=== PATIENT | female | born 2000 | race Caucasian/White ===

== ENCOUNTER 2021-10-23 21:12 | Observation (INO) | payer OTHER, MEDICAID, SELFPAY ==
[2021-10-23] VITALS (13 sets, daily range): BP systolic 102–109; BP diastolic 58–72; PULSE 73–97; O2SAT 99–100; BMI 20.1
[2021-10-23 22:09] LABS: Add Urine Microscopic? YES; Appearance Urine Cloudy (Clear); Bacteria Urine Trace /hpf; Bilirubin Urine Negative (Negative); Blood Urine Negative (Negative); Color Urine Yellow (Yellow); Glucose Urine UA Negative (Negative); Ketones Urine Negative (Negative); Leukocyte Esterase Ur Trace LEU/UL (NEGATIVE); Mucus Urine Rare /lpf; Nitrate Urine Negative (Negative); Protein Urine Negative (Negative); Squamous Epithelial Cell Urine Moderate /hpf (Few); Transitional Epi Cells Urine Rare /hpf (None Seen); Urobilinogen Urine Negative mg/dL (<2.0); WBC Urine 0-3 /hpf (0-3)
[2021-10-23 22:46] LABS: Amphetamine Screen Urine Negative (Negative); Barbiturate Screen Urine Negative (Negative); Benzodiazepines Screen Urine Negative (Negative); Cannabinoid Screen Urine Positive (Negative); Cocaine Screen Urine Negative (Negative); Methadone Screen Urine Negative (Negative); Opiate Screen Urine Negative (Negative); Phencyclidine Screen Urine Negative (Negative)
--- NOTE | 2021-10-26 06:59 | PM.OBTRLD ---
OB - Triage/Final Diagnosis Visit Information Comments/Additional reasons for admission: I have assessed the risk for this patient, Queenie Zamarripa, and determined that she would benefit from observation care. Evaluation Laboratory results: Laboratory Tests 10/23/21 10/23/21 21:54 21:54 Urine Color Yellow Urine Appearance Cloudy H Urine pH 6.0 Ur Specific [place] 1.010 Urine Protein Negative Urine Glucose (UA) Negative Urine Ketones Negative Ur Blood (Man) Negative Urine Nitrate Negative Urine Bilirubin Negative Urine Urobilinogen Negative Ur Leukocyte Esterase Trace H Urine RBC 3-5 H Urine WBC 0-3 Ur Squamous Epith Cells Moderate H Ur Transition Epith Cell Rare Urine Bacteria Trace Urine Mucus Rare Urine Opiates Screen Negative Urine Methadone Screen Negative Ur Barbiturates Screen Negative Ur Phencyclidine Scrn Negative Ur Amphetamine Screen Negative U Benzodiazepines Scrn Negative Urine Cocaine Screen Negative U Cannabinoids Screen Positive A Final Diagnosis (1) Abdominal pain affecting : Code(s): O26.899 - Other specified related conditions, unspecified trimester; R10.9 - Unspecified abdominal pain Status: Acute
== END 2021-10-23 22:57 | disposition home or self-care (01) ==
PROVIDERS: Admitting Provider Obstetrics & Gynecology; Visit Provider Obstetrics & Gynecology
DX: O26.892 Other specified pregnancy related conditions, second trimester (principal); R10.9 Unspecified abdominal pain; Z3A.24 24 weeks gestation of pregnancy
CPT/HCPCS: 80307; 81001; 87086; 87088; G0378; G0379

== ENCOUNTER 2021-11-03 08:44 | Outpatient (CLI) | payer OTHER, MEDICAID, SELFPAY ==
--- NOTE | ~2021-11-03 | US_ITS ---
US OB /maternal detail DATE: 11/03/2021 09:51 INDICATION: Supervision of normal . anatomy screen. TECHNIQUE: Real-time imaging, Doppler analysis COMPARISON: None available FINDINGS: Live single intrauterine gestation, fetus in longitudinal lie, vertex presentation, with fe heraclio heart rate of 144 bpm. Anterior placenta, lower margin 10.7 cm above the internal os. Cervix length measurement 2.9 cm. Amniotic fluid index measures 10.4 cm, at lower limits of normal. Densities 5th percentile: 9.7 cm; 9 5th percentile: 22.1 cm) cerebral ventricles, cerebellum, cisterna magna, nuchal fold, spine appear normal. nose a nd lips appear unremarkable. Four-chamber heart. Right ventricular outflow tracts appear normal. Diaphragm intact. Fluid is demonstrated in the stomach and urinary bladder. kidneys appear unremarkable without hydr onephrosis. male external genitalia. Three-vessel umbilical cord with normal insertion at abdominal wall. Biparietal diameter 6.39 cm; 25 weeks 6 days Head circumference 23.78 cm; 25 weeks 6 days Abdominal circumference 21.66 cm; 26 weeks 1 day Femur length 4.74 cm; 25 weeks 6 days Estimated gestational age by Hadlock formula is 26 weeks +/- 1 weeks 6 days with DIANE of 02/09/2022, co mpared to 02/07/2022 by LMP. Femur length/BPD: 74.18, within normal range of 71.0-87.0 Head circumference/abdominal circumference 1.10, within normal range of 1.04-1.22 Femur length/abdominal circumference 21.87, within normal range of 20.0-24.0 Femur length/head circumference 19.93, within normal range of 18.60-20.40 IMPRESSION: Estimated gestational age is 26 weeks +/- 1 weeks 6 days; DIANE: 02/09/2022 Estimated weight is 876.8 +/- 131.5 g Estimated weight-GP: 50.6% Reviewed, dictated and finalized at [facility] Reviewed, dictated and finalized at [facility]. IMPRESSION: Estimated gestational age is 26 weeks +/- 1 weeks 6 days; DIANE: 02/09 Estimated weight is 876.8 +/- 131.5 g Estimated weight-GP: 50.6%
== END 2021-11-03 08:45 | disposition home or self-care (01) ==
LOC: ANHIMG 08:45
PROVIDERS: Visit Provider Obstetrics & Gynecology
DX: Z34.92 Encounter for supervision of normal pregnancy, unspecified, second trimester (principal); Z3A.26 26 weeks gestation of pregnancy
CPT/HCPCS: 76805

== ENCOUNTER 2021-11-15 08:42 | Outpatient (CLI) | payer OTHER, MEDICAID, SELFPAY ==
[2021-11-15 09:30] LABS: Creatinine Urine 61.9 mg/dL; Total Protein Urine Random 10 mg/dL
[2021-11-15 09:59] LABS: Basophils Percent Auto 0.3 % (0.2-1.2); Eosinophils Absolute Auto 0.1 K/mm3 (0-0.3); Eosinophils Percent Auto 1.3 % (0-4.4); Hemoglobin 9.8 g/dL (12.0-15.0); Immature Granulocyte Absolute 0.07 K/mm3 (0.00-0.031); Immature Granulocyte Percent A 0.7 % (0-0.5); Lymphocytes Absolute Auto 1.53 K/mm3 (0.9-3.2); Lymphocytes Percent Auto 14.2 % (18.3-44.2); Mean Corpuscular HGB Conc 32.7 g/dl (32-36); Mean Corpuscular Hemoglobin 32.7 pg (26-34); Monocytes Absolute Auto 0.6 K/mm3 (0.1-0.6); Monocytes Percent Auto 5.4 % (2.6-8.5); Neutrophils Absolute Auto 8.4 K/mm3 (1.3-6.7); Neutrophils Percent Auto 78.1 % (45.5-73.1); Platelet Count Result 293 k/mm3 (150-375); Red Cell Distribution Width 13.4 % (11.5-14.5); White Blood Count 10.8 K/mm3 (4.5-10.0)
[2021-11-15 10:26] LABS: Alanine Aminotransferase 9 U/L (4-35); Albumin Level 3.7 g/dL (3.5-5.1); Alkaline Phosphatase 61 U/L (38-126); Anion Gap 5 mmol/L (8-16); Aspartate Amino Transferase 17 U/L (14-36); Bilirubin,Total 0.1 mg/dL (0.2-1.3); Blood Urea Nitrogen 3 mg/dL (7-17); Calcium 8.3 mg/dL (8.4-10.2); Carbon Dioxide 26 mmol/L (22-30); Chloride 105 mmol/L (98-107); Estimated Glomerular Filt Rate > 60; Glucose 153 mg/dL (65-110); Glucose 1 Hour PP 50gm Dose 152 mg/dL; Lactate Dehydrogenase 323 U/L (313-618); Potassium 3.4 mmol/L (3.4-5.0); Sodium 136 mmol/L (137-145); Uric Acid 3.3 mg/dL (2.5-7.5)
[2021-11-15 10:51] LABS: HIV 1/2 Ab P24 Ag Result Negative (Negative)
== END 2021-11-15 08:43 | disposition home or self-care (01) ==
LOC: ANHLAB 08:44
PROVIDERS: Visit Provider Obstetrics & Gynecology
DX: Z34.90 Encounter for supervision of normal pregnancy, unspecified, unspecified trimester (principal); Z87.59 Personal history of other complications of pregnancy, childbirth and the puerperium; Z3A.00 Weeks of gestation of pregnancy not specified
CPT/HCPCS: 36415; 80053; 81050; 82570; 82947; 83615; 84156; 84550; 85025; 86703; G0432

== ENCOUNTER 2021-11-19 08:17 | Outpatient (CLI) | payer OTHER, MEDICAID, SELFPAY ==
[2021-11-19 08:48] LABS: Glucose Fasting Gestational 76 mg/dL (>/=95)
[2021-11-19 10:30] LABS: Glucose 1 Hour Gest 150 mg/dL (>/=180)
[2021-11-19 11:22] LABS: Glucose 2 Hour Gest 126 mg/dL (>/= 155)
[2021-11-19 12:05] LABS: Glucose 3 Hour Gest 104 mg/dL (>/=140)
== END 2021-11-19 08:18 | disposition home or self-care (01) ==
PROVIDERS: Visit Provider Obstetrics & Gynecology
DX: R73.09 Other abnormal glucose (principal)
CPT/HCPCS: 36415; 82951; 82952

== ENCOUNTER 2021-12-14 15:25 | Outpatient (CLI) | payer OTHER, MEDICAID, SELFPAY ==
[2021-12-16 18:39] LABS: CMV IgG Antibody <0.60 U/mL (<0.60)
== END 2021-12-14 15:26 | disposition home or self-care (01) ==
PROVIDERS: Visit Provider Obstetrics & Gynecology
DX: Z34.90 Encounter for supervision of normal pregnancy, unspecified, unspecified trimester (principal); Z3A.00 Weeks of gestation of pregnancy not specified
CPT/HCPCS: 36415; 86644; 86747; 86787; 87086

== ENCOUNTER 2021-12-22 10:32 | Outpatient (CLI) | payer OTHER, MEDICAID, SELFPAY ==
[2021-12-22 19:40] LABS: Hematocrit 31.3 % (37.0-47.0); Hemoglobin 10.1 g/dL (12.0-15.0); Mean Corpuscular HGB Conc 32.3 g/dl (32-36); Mean Corpuscular Hemoglobin 33.6 pg (26-34); Mean Platelet Volume 9.8 fl (7.4-10.4); Platelet Count Result 368 k/mm3 (150-375); Red Blood Count 3.01 M/mm3 (4.2-5.4); White Blood Count 13.5 K/mm3 (4.5-10.0)
== END 2021-12-22 10:33 | disposition home or self-care (01) ==
LOC: ANHBWCLAB 10:35
PROVIDERS: PCP Family Medicine; Visit Provider Family Medicine
DX: Z00.00 Encounter for general adult medical examination without abnormal findings (principal); Z87.59 Personal history of other complications of pregnancy, childbirth and the puerperium; R73.09 Other abnormal glucose; R10.9 Unspecified abdominal pain; O26.899 Other specified pregnancy related conditions, unspecified trimester; Z3A.00 Weeks of gestation of pregnancy not specified
CPT/HCPCS: 36415; 85027

== ENCOUNTER 2022-01-16 19:52 | Observation (INO) | payer OTHER, MEDICAID, SELFPAY ==
[2022-01-16] VITALS (14 sets, daily range): BP systolic 105–112; BP diastolic 64–74; PULSE 74–107; TEMP 36.3; O2SAT 99–100
[2022-01-16 20:28] LABS: Appearance Urine Clear (Clear); Bilirubin Urine Negative (Negative); Blood Urine Negative (Negative); Color Urine Yellow (Yellow); Glucose Urine UA Negative (Negative); Ketones Urine Negative (Negative); Leukocyte Esterase Ur 1+ LEU/UL (Negative); Nitrate Urine Negative (Negative); Protein Urine Negative (Negative); Specific Grav Ur 1.015 (1.001-1.035); Urobilinogen Urine 0.2 mg/dL (<2.0)
[2022-01-16 20:44] LABS: Bacteria Urine 2+ /hpf; Squamous Epithelial Cell Urine Many /hpf (Few)
[2022-01-16 20:46] LABS: Add Urine Microscopic? YES
[2022-01-16] MEDS: DEXTROSE 5%/LACTATED RINGERS 1,000 ML 999 ML IV CONT (20:55)
[2022-01-16] MEDS: ONDANSETRON INJ 4 MG/2 ML VIAL IV PUSH (20:58)
--- NOTE | 2022-01-26 10:45 | PM.OBTRLD ---
OB - Triage/Final Diagnosis Visit Information Reason for evaluation: threatened labor Comments/Additional reasons for admission: I have assessed the risk for this patient, Queenie Zamarripa, and determined that she would benefit from observation care. Evaluation Laboratory results: Laboratory Tests 01/16/22 20:18 Urine Color Yellow Urine Appearance Clear Urine pH 7.0 Ur Specific [place] 1.015 Urine Protein Negative Urine Glucose (UA) Negative Urine Ketones Negative Ur Blood (Man) Negative Urine Nitrate Negative Urine Bilirubin Negative Urine Urobilinogen 0.2 Leukocyte Esterase Rfl 1+ H Urine RBC 3-5 H Urine WBC 4-6 H Ur Squamous Epith Cells Many H Urine Bacteria 2+ H
== END 2022-01-16 21:49 | disposition home or self-care (01) ==
PROVIDERS: Admitting Provider Obstetrics & Gynecology; PCP Family Medicine; Visit Provider Obstetrics & Gynecology
DX: O47.9 False labor, unspecified (principal); Z3A.00 Weeks of gestation of pregnancy not specified; R11.2 Nausea with vomiting, unspecified
CPT/HCPCS: 81001; 96374; G0378; G0379; J2405; J7121

== ENCOUNTER 2022-01-25 08:50 | Emergency (ER) | payer OTHER, MEDICAID, SELFPAY ==
[2022-01-25 08:56] VITALS: BP 104/65; PULSE 94; RESP 16; TEMP 36.3; O2SAT 100
--- NOTE | 2022-01-25 09:45 | ED.URI ---
HPI - URI/Sore Throat General Chief Complaint: Upper Respiratory Infection Stated Complaint: sore throat cough achey Time Seen by Provider: 01/25/22 09:47 Source: patient and RN notes reviewed Mode of arrival: ambulatory Limitations: no limitations History of Present Illness HPI Narrative: 21-year-old female who is 39 weeks presents with concern for sore throat and body aches for 3 days. She reports mild cough and congestion. Reports she is scheduled to be induced on February 07. She denies any shortness of breath, fever, nausea, vomiting, diarrhea. MD elicited complaint: cough and sore throat Related Data Home Medications Medication Instructions Recorded Confirmed PNV 153-FA 400 mcg-om3 35 mg-dha 1 tablet PO DAILY 10/27/21 01/25/22 25 mg-epa 5 mg-fish oil chew tablet ( Gummies) aspirin 81 mg chewable tablet 162 mg PO DAILY 10/27/21 01/25/22 Allergies Allergy/AdvReac Type Severity Reaction Status Date / Time No Known Allergies Allergy Verified 01/25/22 09:32 Review of Systems Review of Systems: CONSTITUTIONAL: Reports malaise. Denies chills, sweats, or fever. EYES: Denies visual changes, redness, or discharge. ENT: Reports rhinorrhea, congestion, and sore throat. Denies sinus pain, otalgia CARDIOVASCULAR: Denies chest pain, palpitations, or edema. RESPIRATORY: Reports cough. Denies dyspnea. GASTROINTESTINAL: Denies abdominal pain, nausea, vomiting, diarrhea SKIN: Denies rash or itching. MUSCULOSKELETAL: Reports myalgia. NEUROLOGIC: Denies headache. All systems reviewed & are unremarkable except as noted in HPI and below PMFSH Past Medical History Medical History (Updated 01/25/22 @ 09:52 by Gisel Avendaño NP) Blood glucose abnormal Gestational diabetes mellitus Gestational [-induced] hypertension without significant proteinuria, complicating childbirth Preeclampsia Surgical History Surgical History (Updated 10/27/21 @ 10:53 by Bernadette Grant MA) History of dilation and curettage history of miscarriages xs 3 - 1 d&C Family History Family History (Updated 01/21/22 @ 15:01 by Ailyn Carreno RN) Mother Hypertension Social History Social History (Updated 10/27/21 @ 10:54 by Bernadette Grant MA) Smoking status: Never smoker Tobacco type: e-cigarettes/vaping Alcohol intake: never Substance use: never Substance use type: does not use Additional occupation/education comments: [employer] Gender identity (if verbalized by the patient): Female Sexual Orientation (if Verbalized by the Patient): Straight or Heterosexual Spiritual care concerns: No Comments At time of signature, agree with nursing past medical, surgical, social and family history. There is no relevant family history pertinent to the presenting complaint Exam Narrative: GENERAL: Well-appearing, well-nourished, and in no acute distress. HEAD: Normocephalic EYES: PERRLA, conjunctivae clear ENT: Nares clear, clear discharge. Mucous membranes moist. TM pearly calle with dull light reflex bilaterally; no tragal tenderness. Oropharynx not erythematous without lesions. Tonsils not enlarged and without exudate, no drooling, no hoarseness, no trismus, uvula midline. NECK: Supple. No lymphadenopathy CHEST: Clear to auscultation, breath sounds equal. No wheezing, rhonchi, rales, or stridor. No respiratory distress, speaks in full sentences. HEART: Regular rate and rhythm. No murmur heard. SKIN: Warm, dry, no rash. NEURO: Alert and oriented x3. PSYCH: Normal mood and affect Course Course Emergency Course: Patient is aware of diagnosis, understands and agrees to treatment plan. Anticipatory guidance given. Patient agrees to follow-up as directed and is aware of reasons to seek care at the emergency department. Portions of this record may have been created with voice recognition software Level of Care: Express Care Visit Vital Signs Vital signs: Vital Signs Temperature 97.4 F L 01/25/
== END 2022-01-25 09:55 | disposition home or self-care (01) ==
PROVIDERS: Emergency Provider Nurse Practitioner; PCP Family Medicine
DX: U07.1 COVID-19 (principal); F17.290 Nicotine dependence, other tobacco product, uncomplicated
CPT/HCPCS: 87426; 99213; C9803; G0463

== ENCOUNTER 2022-02-02 15:47 | Observation (INO) | payer OTHER, MEDICAID, SELFPAY ==
[2022-02-02 17:44] VITALS: BP 122/72; PULSE 81
--- NOTE | 2022-02-03 11:46 | PM.OBTRLD ---
OB - Triage/Final Diagnosis Visit Information Comments/Additional reasons for admission: I have assessed the risk for this patient, Queenie Zamarripa, and determined that she would benefit from observation care. Evaluation Vital signs: Vital Signs - 24 hr 02/02/22 17:44 Pulse Rate 81 Blood Pressure 122/72 Final Diagnosis (1) Vaginal spotting: Code(s): N93.9 - Abnormal uterine and vaginal bleeding, unspecified Status: Acute
== END 2022-02-02 17:45 | disposition home or self-care (01) ==
PROVIDERS: Admitting Provider Obstetrics & Gynecology; PCP Family Medicine; Visit Provider Obstetrics & Gynecology
DX: O46.93 Antepartum hemorrhage, unspecified, third trimester (principal); Z3A.39 39 weeks gestation of pregnancy
CPT/HCPCS: G0378; G0379

== ENCOUNTER 2022-02-03 12:37 | Outpatient (CLI) | payer OTHER, MEDICAID, SELFPAY ==
[2022-02-03 13:34] VITALS: PULSE 82
== END 2022-02-03 13:38 | disposition home or self-care (01) ==
LOC: ANHOBOP 13:30 → ANHLDR 13:31
PROVIDERS: PCP Family Medicine; Visit Provider Obstetrics & Gynecology
DX: O42.90 Premature rupture of membranes, unspecified as to length of time between rupture and onset of labor, unspecified weeks of gestation (principal); Z3A.00 Weeks of gestation of pregnancy not specified
CPT/HCPCS: 59025; 84112; 99199

== ENCOUNTER 2022-02-04 05:51 | Inpatient (IN) | payer OTHER, MEDICAID, SELFPAY ==
[2022-02-04] VITALS (188 sets, daily range): BP systolic 95–153; BP diastolic 44–105; PULSE 27–229; RESP 18; TEMP 36.6–37.3; O2SAT 93–100; BMI 22.9
--- NOTE | 2022-02-04 07:02 | LDADM ---
This patient, Queenie Zamarripa, was admitted to Labor/Delivery/Recovery 103 on 02/04/22 at 05:51. Plans for labor, pain management and were discussed with patient. Patient/family oriented to hospital policies and general routines including ID bracelet, bed and alarms, visiting hours, pain management, procedures, bathroom and other care routines, personal items, smoking policy, room service/diet and guest tray routines, infant security routines, and visiting hours. Patient/Family are encouraged to report perceived risks to care and to ask questions if they do not understand what they are told or what they should do. See OBIX for further documentation.
[2022-02-04] MEDS: LACTATED RINGERS 1,000 ML 125 ML IV CONT ×3 (07:35→17:17)
[2022-02-04] MEDS: AMPICILLIN 2 GM/NS 100 ML 2 GM/100 ML BAG IVPB (07:35)
[2022-02-04 07:40] LABS: Basophils Percent Auto 0.3 % (0.2-1.2); Eosinophils Absolute Auto 0.1 K/mm3 (0-0.3); Eosinophils Percent Auto 0.7 % (0-4.4); Hematocrit 33.7 % (37.0-47.0); Hemoglobin 11.3 g/dL (12.0-15.0); Immature Granulocyte Absolute 0.08 K/mm3 (0.00-0.031); Immature Granulocyte Percent A 0.8 % (0-0.5); Lymphocytes Absolute Auto 2.01 K/mm3 (0.9-3.2); Lymphocytes Percent Auto 19.8 % (18.3-44.2); Mean Corpuscular HGB Conc 33.5 g/dl (32-36); Mean Corpuscular Hemoglobin 33.4 pg (26-34); Mean Corpuscular Volume 99.7 fl (80-100); Mean Platelet Volume 9.5 fl (7.4-10.4); Monocytes Absolute Auto 0.8 K/mm3 (0.1-0.6); Monocytes Percent Auto 7.5 % (2.6-8.5); Neutrophils Absolute Auto 7.2 K/mm3 (1.3-6.7); Neutrophils Percent Auto 70.9 % (45.5-73.1); Platelet Count Result 285 k/mm3 (150-375); Red Blood Count 3.38 M/mm3 (4.2-5.4); Red Cell Distribution Width 13.2 % (11.5-14.5); White Blood Count 10.2 K/mm3 (4.5-10.0)
--- NOTE | 2022-02-04 08:13 | PM.IMHP ---
H&P: HPI History of Present Illness Date/Time: 02/04/22 08:13 Chief Complaint: induction of labor Narrative: Queenie is a 22yo @ 39.0wks (DIANE 02/11/22) who presents for elective induction of labor. She has been having contractions. No vb or lof. Good movement. Her is complicated by: 1. Late transfer @ 24wks 2. H/o PEC on ASA 3. Chlamydia infection @ 24wks -- VLADIMIR neg 4. Anemia on iron BID 5. Abnormal glucola; 3 hour normal 6. COVID infection @ 37wga 7. GBS positive Review of Systems Review of Systems: All systems reviewed & are unremarkable except as noted in HPI and below (HPI) PMFSH Past Medical History Medical History Blood glucose abnormal Gestational diabetes mellitus Gestational [-induced] hypertension without significant proteinuria, complicating childbirth Preeclampsia Surgical History Surgical History History of dilation and curettage history of miscarriages xs 3 - 1 d&C Family History Family History Mother Hypertension Social History Social History Smoking status: Current every day smoker Tobacco type: e-cigarettes/vaping Second hand tobacco smoke exposure: Yes Alcohol intake: never Substance use: never Substance use type: does not use Additional occupation/education comments: [employer] Gender identity (if verbalized by the patient): Female Sexual Orientation (if Verbalized by the Patient): Straight or Heterosexual Spiritual care concerns: No Meds Home Medications and Allergies Home Medications Medication Instructions Recorded Confirmed Type PNV 153-FA 400 mcg-om3 35 mg-dha 1 tablet PO DAILY 10/27/21 01/25/22 History 25 mg-epa 5 mg-fish oil chew tablet ( Gummies) aspirin 81 mg chewable tablet 162 mg PO DAILY 10/27/21 01/25/22 History ferrous sulfate 325 mg (65 mg 325 mg PO DAILY #60 tabs 10/27/21 01/25/22 Rx iron) tablet (Iron (ferrous sulfate)) magnesium oxide 400 mg (241.3 mg 400 mg PO DAILY #90 tabs 10/27/21 01/25/22 Rx magnesium) tablet ondansetron 4 mg disintegrating 4 mg PO Q6H PRN nausea and 10/27/21 01/25/22 Rx tablet vomiting #30 tabs Allergies Allergy/AdvReac Type Severity Reaction Status Date / Time No Known Allergies Allergy Verified 01/25/22 09:32 Vital Signs Vital Signs - 24 hr 02/04/22 07:01 Oxygen Delivery Room Air Exam Const: General: cooperative, healthy appearing, comfortable and no acute distress Resp: Effort & Inspection: normal respiratory effort Cardio: Rate: regular rate GI: Inspection: normal to inspection GI Palp: Yes Soft to palpation : Other: FHT's: 130's/ mod gerardo/ + accels/ no decels - cat 1 TOCO: ctx's q5min Cervix: 2/80/-3 Membranes: intact, GBS + Presentation: cephalic Skin: General skin exam: normal color Neuro: General: patient oriented x3 Extrem: General: normal to inspection Psych: Appearance: grossly normal Affect: normal affect Attitude: cooperative H&P: Results Labs Labs: Short CBC 02/04/22 Range/Units 07:20 WBC 10.2 H (4.5-10.0) K/mm3 Hgb 11.3 L (12.0-15.0) g/dL Hct 33.7 L (37.0-47.0) % Plt Count 285 (150-375) k/mm3 Assessment and Plan Assessment and plan (1) : Code(s): Z34.90 - Encounter for supervision of normal , unspecified, unspecified trimester Status: Acute Assessment and Plan: - Admitted to L&D for elective IOL - Anesthesia consult for early epidural - Pitocin per protocol - GBS ppx w/ ampicillin - Continuous monitoring; reassuring
--- NOTE | 2022-02-04 08:24 | WPDHPUPDATE1 ---
History and Physical Update Update Date/Time: 02/04/22 08:24 History and Physical has been reviewed, including an updated exam of the patient. There are NO changes in the patient's condition. Risks, benefits, and alternatives have been discussed and questions answered. Patient agrees to proceed with procedure.
[2022-02-04 08:49] LABS: Hepatitis B Surface Antigen Negative (Negative)
[2022-02-04 08:50] LABS: Rubella IgG Antibody 6.2 IU/ML
[2022-02-04 09:55] LABS: Amphetamine Screen Urine Negative (Negative); Barbiturate Screen Urine Negative (Negative); Benzodiazepines Screen Urine Negative (Negative); Cannabinoid Screen Urine Negative (Negative); Cocaine Screen Urine Negative (Negative); Methadone Screen Urine Negative (Negative); Opiate Screen Urine Negative (Negative); Phencyclidine Screen Urine Negative (Negative)
[2022-02-04] MEDS: OXYTOCIN 30 UNITS/NS 500 ML 30 UNITS/500 ML BAG IV CONT (10:10)
--- NOTE | 2022-02-04 10:21 | WPDANESEPPF ---
Anes - Initial Pre Proc Eval Procedure: labor epidural Date/Time: 02/04/22 10:21 Surgeon: Jia Martinez MD Pre Op Diagnosis: labor pain Pre Op Diagnosis: IOL Patient Data Age: 22 Gender: F Height: 1.57 m Weight: 57 kg Last Vital Signs O2 Del Method Room Air 02/04/22 07:01 Allergies Allergy/AdvReac Type Severity Reaction Status Date / Time No Known Allergies Allergy Verified 01/25/22 09:32 Home Medications Medication Instructions Recorded Confirmed Type PNV 153-FA 400 mcg-om3 35 mg-dha 1 tablet PO DAILY 10/27/21 01/25/22 History 25 mg-epa 5 mg-fish oil chew tablet ( Gummies) aspirin 81 mg chewable tablet 162 mg PO DAILY 10/27/21 01/25/22 History ferrous sulfate 325 mg (65 mg 325 mg PO DAILY #60 tabs 10/27/21 01/25/22 Rx iron) tablet (Iron (ferrous sulfate)) magnesium oxide 400 mg (241.3 mg 400 mg PO DAILY #90 tabs 10/27/21 01/25/22 Rx magnesium) tablet ondansetron 4 mg disintegrating 4 mg PO Q6H PRN nausea and 10/27/21 01/25/22 Rx tablet vomiting #30 tabs Laboratory Tests 02/04/22 02/04/22 02/04/22 07:20 07:20 07:20 WBC 10.2 K/mm3 H K/mm3 (4.5-10.0) RBC 3.38 M/mm3 L M/mm3 (4.2-5.4) Hgb 11.3 g/dL L g/dL (12.0-15.0) Hct 33.7 % L % (37.0-47.0) MCV 99.7 fl fl (80-100) MCH 33.4 pg pg (26-34) MCHC 33.5 g/dl g/dl (32-36) RDW 13.2 % % (11.5-14.5) Plt Count 285 k/mm3 k/mm3 (150-375) MPV 9.5 fl fl (7.4-10.4) Immature Gran % (Auto) 0.8 % H % (0-0.5) Neut % (Auto) 70.9 % % (45.5-73.1) Lymph % (Auto) 19.8 % % (18.3-44.2) [place] % (Auto) 7.5 % % (2.6-8.5) Eos % (Auto) 0.7 % % (0-4.4) Baso % (Auto) 0.3 % % (0.2-1.2) Lymph # (Auto) 2.01 K/mm3 K/mm3 (0.9-3.2) [place] # (Auto) 0.8 K/mm3 H K/mm3 (0.1-0.6) Eos # (Auto) 0.1 K/mm3 K/mm3 (0-0.3) Baso # (Auto) 0.0 K/mm3 K/mm3 (0.0-0.1) Abs Immat Gran (auto) 0.08 K/mm3 H K/mm3 (0.00-0.031) Absolute Neuts (auto) 7.2 K/mm3 H K/mm3 (1.3-6.7) Absolute Nucleated RBC 0.0 K/mm3 K/mm3 (0.0-0.012) Nucleated RBC % 0.0 % % (0.0-0.2) Urine Opiates Screen Urine Methadone Screen Ur Barbiturates Screen Ur Phencyclidine Scrn Ur Amphetamine Screen U Benzodiazepines Scrn Urine Cocaine Screen U Cannabinoids Screen RPR Pending Hep Bs Antigen Rubella IgG Antibody 6.2 IU/ML L IU/ML (10 - ) Blood Type Antibody Screen 02/04/22 02/04/22 02/04/22 07:20 07:20 09:20 WBC RBC Hgb Hct MCV MCH MCHC RDW Plt Count MPV Immature Gran % (Auto) Neut % (Auto) Lymph % (Auto) [place] % (Auto) Eos % (Auto) Baso % (Auto) Lymph # (Auto) [place] # (Auto) Eos # (Auto) Baso # (Auto) Abs Immat Gran (auto) Absolute Neuts (auto) Absolute Nucleated RBC Nucleated RBC % Urine Opiates Screen Negative (Negative) Urine Methadone Screen Negative (Negative) Ur Barbiturates Screen Negative (Negative) Ur Phencyclidine Scrn Negative (Negative) Ur Amphetamine Screen Negative (Negative) U Benzodiazepines Scrn Negative (Negative) Urine Cocaine Screen Negative (Negative) U Cannabinoids Screen Negative (Negative) RPR Hep Bs Antigen Negative (Negative) Rubella IgG Antibody Blood Type A Positive Antibody Screen Negativ
[2022-02-04] MEDS: AMPICILLIN 1 GM/NS 50 ML 1 GM/50 ML BAG IVPB ×2 (12:04→15:55)
--- NOTE | 2022-02-04 12:21 | PM.OBPNLAB ---
Pain Control Date/time seen: 02/04/22 12:21 Pain control: epidural Pelvic Exam Dilation (cm): 3 Effacement (%): 80 station: -2 Amniotic membrane status: Ruptured (AROM, clear 1215) Contractions Monitor mode: External Contraction frequency: 3 Contraction pattern: Regular Status status: Category l Assessment and Plan Pitocin rate (mU/min): 2 Assessment: induction ongoing Plan: continuous present management
--- NOTE | 2022-02-04 14:45 | PM.OBPNLAB ---
Pain Control Date/time seen: 02/04/22 14:45 Pain control: epidural Pelvic Exam Dilation (cm): 4 Effacement (%): 80 station: -2 Amniotic membrane status: Ruptured (AROM, clear 1215) Contractions Monitor mode: Internal (placed on this exam) Contraction frequency: 2 (-4) Contraction pattern: Regular Status status: Category l Assessment and Plan Pitocin rate (mU/min): 8 Assessment: induction ongoing Plan: continuous present management
[2022-02-04 17:18] LABS: Rapid Plasma Reagin Non-Reactive (NonReactive)
--- NOTE | 2022-02-04 18:55 | PM.OBPRVD ---
OB - Delivery Note Procedure Delivery date: 02/04/22 Events: Positive Group B Strep (GBS) and Other (covid infection in ) Induction method: Per Pitocin Protocol Delivery augmentation: Rupture of Membranes Delivery monitor: External FHT and Internal Uterine Route of delivery: Laceration Description: None Specimen: Yes (placenta) Quantitative Blood Loss (ml): 100 Anesthesia type: Epidural Disposition: Floor Baby Date of : 02/04/22 Time of : 18:39 Weeks of gestation at delivery: 39 gender: Male Weight (pounds): 5 Weight (ounces): 15 presentation: vertex position: Right Occiput Anterior Placenta delivery description: Expressed Cord Vessel Description: 3 Vessels, Nuchal Cord, Loose, Reduced and Delayed Cord Clamping score one minute: 9 score five minutes: 9 Narrative: Queenie rapidly progressed to complete dilation with strong desire to push. She pushed twice and delivered the head over intact perineum. A nuchal cord was noted and easily reduced. She easily delivered the infant's shoulders and body without complication. The infant had spontaneous cry and was immediately placed skin to skin. Delayed cord clamping was performed. The umbilical cord was then clamped and cut. A segment of the cord was collected for cord gases. The remaining cord blood was collected typing. With Pitocin running and gentle downward traction on the cord, the placenta delivered without complications. Bimanual massage was performed and good uterine tone had spinal bleeding was noted. She was examined and no lacerations were noted. Sponge, lap, instrument, and needle counts were correct at the end the procedure. Mom and baby were left bonding birthing suite in a stable condition. [facility] Delivery Billing Delivery Delivery: Delivery Charge
[2022-02-04] MEDS: OXYTOCIN 30 UNITS/NS 500 ML 30 UNITS/500 ML BAG 125 UNITS IV CONT (19:41)
[2022-02-04] MEDS: IBUPROFEN 600 MG TABLET PO (20:01)
[2022-02-04] MEDS: BENZOCAINE 20% AER SPR (*SP) 56 GM CAN 1 SPRAY TOPICAL (20:02)
[2022-02-04] MEDS: WITCH HAZEL 40 PADS 1 PAD TOPICAL (20:02)
--- NOTE | 2022-02-05 00:42 | OBPPTRN ---
02/04/2022 at 2225 Patient transferred to post room #292 via wheelchair and then transferred to [facility] and then to bed. Patient tolerated well. Support person present. Oriented to unit, room, information board, rooming in, admission packet and security measures. Patient verbalizes understanding.
[2022-02-05 03:20] VITALS: BP 94/50; PULSE 73; RESP 16; TEMP 37.2; O2SAT 97
[2022-02-05 04:32] LABS: Hematocrit 31.7 % (37.0-47.0); Hemoglobin 10.7 g/dL (12.0-15.0)
[2022-02-05] MEDS: IBUPROFEN 600 MG TABLET PO ×2 (05:59→15:43)
[2022-02-05 07:15] VITALS: BP 104/66; PULSE 73; RESP 18; TEMP 36.8; O2SAT 100
--- NOTE | 2022-02-05 07:44 | WPDANESPN ---
Anes - Prog Note Post-Op Date/Time: 02/05/22 07:44 Cardiovascular status: normal Respiratory status: normal Airway patency: baseline Mental status: baseline Post-Op hydration status: normal Vital Signs: Last Vital Signs Temp 37.2 C 02/05/22 03:20 Pulse 73 02/05/22 03:20 Resp 16 02/05/22 03:20 BP 94/50 L 02/05/22 03:20 Pulse Ox 97 02/05/22 03:20 O2 Del Method Room Air 02/04/22 07:01 Pain Score (VAS): 0 I/O: Intake & Output 02/04/22 02/04/22 02/05/22 15:59 23:59 07:59 Intake Total 1050 2550 Output Total 85 Balance 1050 2465 Laboratory Tests 02/05/22 03:30 02/04/22 02/04/22 02/04/22 07:20 07:20 07:20 WBC 10.2 H RBC 3.38 L Hgb 11.3 L Hct 33.7 L MCV 99.7 MCH 33.4 MCHC 33.5 RDW 13.2 Plt Count 285 MPV 9.5 Immature Gran % (Auto) 0.8 H Neut % (Auto) 70.9 Lymph % (Auto) 19.8 [place] % (Auto) 7.5 Eos % (Auto) 0.7 Baso % (Auto) 0.3 Lymph # (Auto) 2.01 [place] # (Auto) 0.8 H Eos # (Auto) 0.1 Baso # (Auto) 0.0 Abs Immat Gran (auto) 0.08 H Absolute Neuts (auto) 7.2 H Absolute Nucleated RBC 0.0 Nucleated RBC % 0.0 Urine Opiates Screen Urine Methadone Screen Ur Barbiturates Screen Ur Phencyclidine Scrn Ur Amphetamine Screen U Benzodiazepines Scrn Urine Cocaine Screen U Cannabinoids Screen RPR Non-reactive Hep Bs Antigen Rubella IgG Antibody 6.2 L Blood Type Antibody Screen 02/04/22 02/04/22 02/04/22 07:20 07:20 09:20 WBC RBC Hgb Hct MCV MCH MCHC RDW Plt Count MPV Immature Gran % (Auto) Neut % (Auto) Lymph % (Auto) [place] % (Auto) Eos % (Auto) Baso % (Auto) Lymph # (Auto) [place] # (Auto) Eos # (Auto) Baso # (Auto) Abs Immat Gran (auto) Absolute Neuts (auto) Absolute Nucleated RBC Nucleated RBC % Urine Opiates Screen Negative Urine Methadone Screen Negative Ur Barbiturates Screen Negative Ur Phencyclidine Scrn Negative Ur Amphetamine Screen Negative U Benzodiazepines Scrn Negative Urine Cocaine Screen Negative U Cannabinoids Screen Negative RPR Hep Bs Antigen Negative Rubella IgG Antibody Blood Type A Positive Antibody Screen Negative 02/05/22 03:30 WBC RBC Hgb 10.7 L Hct 31.7 L MCV MCH MCHC RDW Plt Count MPV Immature Gran % (Auto) Neut % (Auto) Lymph % (Auto) [place] % (Auto) Eos % (Auto) Baso % (Auto) Lymph # (Auto) [place] # (Auto) Eos # (Auto) Baso # (Auto) Abs Immat Gran (auto) Absolute Neuts (auto) Absolute Nucleated RBC Nucleated RBC % Urine Opiates Screen Urine Methadone Screen Ur Barbiturates Screen Ur Phencyclidine Scrn Ur Amphetamine Screen U Benzodiazepines Scrn Urine Cocaine Screen U Cannabinoids Screen RPR Hep Bs Antigen Rubella IgG Antibody Blood Type Antibody Screen Post-procedural complaints: none Patient Feedback: Patient satisfied with anesthetic care.
[2022-02-05] MEDS: MULTIVIT/MIN/PREN/FOL AC/IRON TABLET 1 TAB PO (10:33)
--- NOTE | 2022-02-05 11:12 | PM.OBPNVD ---
OB - PN: Subj Subjective Date/time seen: 02/05/22 11:12 Patient comments: no complaints and pain well controlled baby status: doing well OB - PN: Obj Data Labs CBC & Chem 7: 02/05/22 03:30 Labs: Laboratory Results - last 24 hr 02/04/22 02/05/22 07:20 03:30 Hgb 10.7 L Hct 31.7 L RPR Non-reactive OB - PN A/P Plan day: 1 Plan: routine care Time Spent With Patient Time: Total time spent is greater than 50% in coordination of care (as documented) at patient's floor/unit and/or counseling patient:
[2022-02-05 11:45] VITALS: BP 82/61; PULSE 87; RESP 18; TEMP 36.2; O2SAT 99
[2022-02-05 16:35] VITALS: BP 138/95; PULSE 81; RESP 18; TEMP 36.9; O2SAT 99
[2022-02-05 17:03] VITALS: BP 122/79
[2022-02-05 19:30] VITALS: BP 103/69; PULSE 81; RESP 18; TEMP 36.9
[2022-02-05] MEDS: TETANUS,DIPHTHERIA,AC PERTUSSIS ADULT (0.5 ML) BOOSTRIX IM (21:08)
[2022-02-06] MEDS: IBUPROFEN 600 MG TABLET PO ×2 (00:54→09:44)
--- NOTE | 2022-02-06 07:41 | PM.OBPNVD ---
OB - PN: Subj Subjective Date/time seen: 02/06/22 07:41 Patient comments: no complaints and pain well controlled baby status: doing well OB - PN: Obj Data Labs CBC & Chem 7: 02/05/22 03:30 OB - PN A/P Plan day: 2 Plan: routine care, discharge home and follow up 6 weeks Time Spent With Patient Time: Total time spent is greater than 50% in coordination of care (as documented) at patient's floor/unit and/or counseling patient: Exam : Bimanual exam- vagina & uterus: other (Uterus firm, nt @U)
--- NOTE | 2022-02-06 07:42 | PM.OBDSVD ---
DS: Admitting Diagnosis Discharge Date 02/06/22 Admitting Diagnosis MIL at 39 wk DS: Discharge Diagnosis Discharge Diagnosis (1) (normal spontaneous vaginal delivery): Code(s): O80 - Encounter for full-term uncomplicated delivery Status: Acute OB - DS: Summary OB Procedures : Ultrasound OB Procedures Intrapartum: Spontaneous Vag Delivery OB Procedures: : None Peripartum Data Infant Delivery Method: Natural Vaginal Laceration Description: None Status at Discharge Functional status at discharge: independent ambulation Overall status at discharge: patient is progressing back to baseline Time Spent with Patient Time attestation: Total time spent providing and/or coordinating discharge services: Discharge Plan Discharge Attending physician on discharge: Jia Martinez Discharging Clinician: Shanda Moore Anticipated Discharge Date/Time: 02/06/22 07:44 Patient Disposition: Home, Self-Care Activity: may shower and pelvic rest Diet: regular Patient Instructions: Antibiotic Form Stand Alone Forms: General Discharge Information Follow-up/Referrals: Jia Martinez MD [Physician] - 6 Weeks Discharge Medications: Continued Gummies 400 mcg-35 mg- 25 mg-5 mg tablet,chewable 1 tablet PO DAILY ferrous sulfate [Iron (ferrous sulfate)] 325 mg (65 mg iron) tablet 325 mg PO DAILY Qty: 60 3RF Discontinued aspirin 81 mg tablet,chewable 162 mg PO DAILY ondansetron 4 mg tablet,disintegrating 4 mg PO Q6H PRN (Reason: nausea and vomiting) Qty: 30 2RF magnesium oxide 400 mg (241.3 mg magnesium) tablet 400 mg PO DAILY Qty: 90 2RF Date of admission: 02/04/22 05:51 Primary Care Provider: Papito Michelle Admitting Provider: Ammon Zhu Attending physician on admission: Jia Martinez Condition: Stable
[2022-02-06 08:35] VITALS: BP 117/77; PULSE 64; RESP 16; TEMP 36.7; O2SAT 99
[2022-02-06] MEDS: MULTIVIT/MIN/PREN/FOL AC/IRON TABLET 1 TAB PO (09:44)
[2022-02-06] MEDS: DOCUSATE SODIUM 100 MG CAPSULE PO (09:44)
[2022-02-06] MEDS: MEASLES,MUMPS,RUBELLA VACCINE 0.5 ML VIAL SUB-Q (14:05)
[2022-02-07 13:24] VITALS: BP 123/72; PULSE 83; RESP 20; TEMP 36.5; O2SAT 100
== END 2022-02-06 15:24 | disposition home or self-care (01) | DRG 806 ==
LOC: ANHOB2 02-06 13:04 → ANHLDR 02-08 12:40 → ANHOB2 02-08 12:40
PROVIDERS: Admitting Provider Obstetrics & Gynecology; PCP Family Medicine; Visit Provider Obstetrics & Gynecology Gynecology
DX: O99.824 Streptococcus B carrier state complicating childbirth (principal); O98.32 Other infections with a predominantly sexual mode of transmission complicating childbirth; Z37.0 Single live birth; Z3A.39 39 weeks gestation of pregnancy; O36.8330 Maternal care for abnormalities of the fetal heart rate or rhythm, third trimester, not applicable or unspecified; O99.02 Anemia complicating childbirth; D64.9 Anemia, unspecified; A56.8 Sexually transmitted chlamydial infection of other sites; O24.429 Gestational diabetes mellitus in childbirth, unspecified control; O13.4 Gestational [pregnancy-induced] hypertension without significant proteinuria, complicating childbirth; O69.81X0 Labor and delivery complicated by cord around neck, without compression, not applicable or unspecified; Z86.16 Personal history of COVID-19
CPT/HCPCS: 36415; 80307; 85014; 85018; 85025; 86592; 86762; 86850; 86900; 86901; 87340; 90710; 90715; A9270; J0290; J2590; J2795; J7120

== ENCOUNTER 2022-10-09 11:21 | Emergency (ER) | payer OTHER, MEDICAID, SELFPAY ==
[2022-10-09 11:48] VITALS: BP 113/66; PULSE 100; RESP 18; TEMP 37.1; O2SAT 99
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
== END 2022-10-09 12:56 | disposition home or self-care (01) ==
PROVIDERS: Emergency Provider Nurse Practitioner; PCP Family Medicine
DX: J06.9 Acute upper respiratory infection, unspecified (principal); S39.012A Strain of muscle, fascia and tendon of lower back, initial encounter; V49.40XA Driver injured in collision with unspecified motor vehicles in traffic accident, initial encounter
CPT/HCPCS: 99213; G0463

== ENCOUNTER 2023-08-18 15:48 | Emergency (ER) | payer OTHER, MEDICAID, SELFPAY ==
[2023-08-18 16:04] VITALS: BP 124/86; PULSE 114; RESP 14; TEMP 37.2; O2SAT 98
--- NOTE | 2023-08-18 16:45 | ED.URI ---
HPI - URI/Sore Throat General Chief Complaint: Upper Respiratory Infection Stated Complaint: exposed to covid Time Seen by Provider: 08/18/23 16:45 Source: patient and RN notes reviewed Mode of arrival: ambulatory Limitations: no limitations History of Present Illness HPI Narrative: 23-year-old female presents concern for exposure COVID. She denies having symptoms at this time. Reports she was exposed COVID four to 5 days ago. MD elicited complaint: other (COVID exposure) Related Data Allergies Allergy/AdvReac Type Severity Reaction Status Date / Time No Known Allergies Allergy Verified 10/09/22 12:45 Review of Systems Review of Systems: CONSTITUTIONAL: Denies malaise, chills, sweats, or fever. EYES: Denies visual changes, redness, or discharge. ENT: Denies rhinorrhea, congestion, sinus pain, otalgia and sore throat. CARDIOVASCULAR: Denies chest pain, palpitations, or edema. RESPIRATORY: Denies cough. Denies dyspnea. GASTROINTESTINAL: Denies abdominal pain, nausea, vomiting, diarrhea SKIN: Denies rash or itching. MUSCULOSKELETAL: Denies myalgia. NEUROLOGIC: Denies headache. All systems reviewed & are unremarkable except as noted in HPI and below PMFSH Past Medical History Medical History Blood glucose abnormal Gestational diabetes mellitus Gestational [-induced] hypertension without significant proteinuria, complicating childbirth Preeclampsia Surgical History Surgical History History of dilation and curettage history of miscarriages xs 3 - 1 d&C Family History Family History Mother Hypertension Social History Social History Smoking status: Current every day smoker Tobacco type: e-cigarettes/vaping Second hand tobacco smoke exposure: Yes Alcohol intake: never Substance use: never Substance use type: does not use Living arrangements: with family Occupation/Education: occupation Additional occupation/education comments: [employer] Gender identity (if verbalized by the patient): Female Sexual Orientation (if Verbalized by the Patient): Straight or Heterosexual Spiritual care concerns: No Comments At time of signature, agree with nursing past medical, surgical, social and family history. There is no relevant family history pertinent to the presenting complaint Exam Narrative: GENERAL: Well-appearing, well-nourished, and in no acute distress. HEAD: Normocephalic EYES: PERRLA, conjunctivae clear NECK: Supple. No lymphadenopathy CHEST: No respiratory distress, speaks in full sentences. HEART: Regular rate and rhythm. No murmur heard. SKIN: Warm, dry, no rash. NEURO: Alert and oriented x3. PSYCH: Normal mood and affect Course Course Emergency Course: Patient is aware of diagnosis, understands and agrees to treatment plan. Anticipatory guidance given. Patient agrees to follow-up as directed and is aware of reasons to seek care at the emergency department. Portions of this record may have been created with voice recognition software Level of Care: Express Care Visit Vital Signs Vital signs: Vital Signs Temperature 99 F 08/18/23 16:04 Pulse Rate 114 H 08/18/23 16:04 Respiratory Rate 14 08/18/23 16:04 Blood Pressure 124/86 08/18/23 16:04 Pulse Oximetry 98 08/18/23 16:04 Oxygen Delivery Room Air 08/18/23 16:04 Temperature 99 F 08/18/23 16:04 Pulse Rate 114 H 08/18/23 16:04 Respiratory Rate 14 08/18/23 16:04 Blood Pressure 124/86 08/18/23 16:04 Pulse Oximetry 98 08/18/23 16:04 Oxygen Delivery Room Air 08/18/23 16:04 Reviewed. MDM - URI/Sore Throat MDM Narrative Medical decision making narrative: Differential diagnosis considered: Fisher virus, strep pharyngitis, al
== END 2023-08-18 17:08 | disposition home or self-care (01) ==
PROVIDERS: Emergency Provider Nurse Practitioner; PCP Family Medicine
DX: Z20.822 Contact with and (suspected) exposure to COVID-19 (principal); F17.290 Nicotine dependence, other tobacco product, uncomplicated
CPT/HCPCS: 99211; G0463